=== PATIENT | female | born 1955 | race Asian ===

== ENCOUNTER 2023-06-20 15:30 | Emergency (ER) | payer MEDICARE ==
[~2023-06-20] VITALS: Ht 157.5 cm; Wt 56.8 kg
[2023-06-20 15:43] VITALS: TEMP 97.3
[2023-06-20] MEDS ORDERED: METF-1211 PO (15:49)
[2023-06-20] MEDS ORDERED: LOSA-382 PO (15:49)
[2023-06-20] MEDS ORDERED: MONT-35 PO (15:49)
[2023-06-20 16:26] LABS: BASOPHILS % (AUTO) 0.6 % (0.0-2.0); EOSINOPHILS % (AUTO) 1.3 % (1.0-6.0); HEMATOCRIT 39.7 % (36-46); HEMOGLOBIN 12.4 g/dL (12.0-16.0); LYMPHOCYTES # (AUTO) 2.6 K/uL (1.0-4.8); LYMPHOCYTES % (AUTO) 27.5 % (22.0-44.0); MEAN CORPUSCULAR HEMOGLOBIN 21.7 pg (26.0-34.0); MEAN CORPUSCULAR HGB CONC 31.2 G/dL (31.0-37.0); MEAN CORPUSCULAR VOLUME 70 fL (80-100); MONOCYTES # (AUTO) 0.6 K/uL (0.1-1.0); MONOCYTES % (AUTO) 6.6 % (2.0-9.0); NEUTROPHILS # (AUTO) 5.9 K/uL (1.8-7.7); PLATELET COUNT (AUTO) 224 K/uL (150-450); RED BLOOD CELL COUNT(AUTO) 5.69 MIL/uL (4.00-5.20); RED CELL DISTRIBUTION WIDTH 15.3 % (11.5-14.5); WHITE BLOOD COUNT (AUTO) 9.3 K/uL (4.5-11.0)
[2023-06-20 16:36] LABS: CREATININE 1.27 mg/dL (0.60-1.30); POTASSIUM 3.8 mmol/L (3.5-5.1)
[2023-06-20 16:43] LABS: ALBUMIN 4.3 g/dL (3.4-5.0); BILIRUBIN,TOTAL 0.2 mg/dL (0.1-1.0); TOTAL PROTEIN, SERUM 8.1 g/dL (6.4-8.2)
[2023-06-20 17:00] VITALS: BP 135/75; PULSE 75; RESP 15
[2023-06-20 17:33] LABS: RBC MORPHOLOGY COMMENT ABNORMAL RBC MORPH
== END 2023-06-20 17:17 | disposition home or self-care (01) ==
LOC: EMS 15:30
DX: N64.52 Nipple discharge (principal); E11.9 Type 2 diabetes mellitus without complications; I10 Essential (primary) hypertension; J45.909 Unspecified asthma, uncomplicated
CPT/HCPCS: 80053; 85025; 99283

== ENCOUNTER 2024-05-23 18:11 | Emergency (ER) | payer MEDICARE, MEDICAID ==
[~2024-05-23] VITALS: Ht 152.4 cm; Wt 67.0 kg
[~2024-05-23 18:11] MED LIST: LOSA-382 PO; METF-1211 PO; MONT-35 PO
[2024-05-23 18:17] VITALS: TEMP 98.3
[2024-05-23 20:47] VITALS: BP 175/98; PULSE 107; RESP 22; O2SAT 99
[2024-05-23] MEDS: ACETAMINOPHEN 500 MG TABLET PO ONE (20:57)
[2024-05-23] MEDS: IBUPROFEN 400 MG TABLET PO ONE (20:58)
== END 2024-05-23 22:08 | disposition home or self-care (01) ==
LOC: EMS 18:11
DX: S20.01XA Contusion of right breast, initial encounter (principal); M25.511 Pain in right shoulder; N64.4 Mastodynia; E11.9 Type 2 diabetes mellitus without complications; J45.909 Unspecified asthma, uncomplicated; I10 Essential (primary) hypertension; Z79.899 Other long term (current) drug therapy; V49.40XA Driver injured in collision with unspecified motor vehicles in traffic accident, initial encounter; Y93.89 Activity, other specified; Y92.410 Unspecified street and highway as the place of occurrence of the external cause; Y99.8 Other external cause status
CPT/HCPCS: 82962; 99283